=== PATIENT | male | born 1955 | race Caucasian/White ===

== ENCOUNTER → 2018-07-02 17:30 | Outpatient (CLI) | payer SELFPAY ==
--- NOTE | 2018-07-02 17:40 | CT_ITS ---
CT of the right heel Indication trauma TECHNIQUE: CT of the right heel was performed in the axial plane without contrast followed by sagittal and coronal reconstructions FINDINGS: There is an acute comminuted impacted fracture of the calcaneus with mild separation of fracture fragments. The subtalar joints are maintained. No other fractures are identified. CT/Extremity Lower without Contra IMPRESSION: Acute mildly impacted comminuted fracture of the calcaneus with separation of fracture fragments but preservation of subtalar joints Electronically Signed: Giuseppe Win MD at 18:04 EST , Service support ,
== END ==
PROVIDERS: Family Provider Internal Medicine; PCP Internal Medicine; Referring Provider Podiatrist Foot & Ankle Surgery; Visit Provider Podiatrist Foot & Ankle Surgery
DX: R60.0 Localized edema (principal)
CPT/HCPCS: 73700

== ENCOUNTER 2018-07-07 08:59 | Day surgery (SDC) | payer SELFPAY ==
[2018-07-07 09:27] VITALS: BP 164/98; PULSE 72; RESP 18; TEMP 36.6; O2SAT 98; BMI 25.5
[2018-07-07] MEDS: Cefazolin 2 GM in 0.9% Normal Saline 100 ML IV (12:35)
--- NOTE | 2018-07-07 13:00 | RAD_ITS ---
STUDY: Fluoroscopy- RIGHT CALCANEUS REASON FOR EXAM: Male, 62 years old. TECHNIQUE: Fluoroscopic intraoperative views view(s) of the calcaneus were obtained. Multiple views. COMPARISON: None. FINDINGS: Multiple fluoroscopic views are provided of the calcaneus during a fixation procedure for fracture.. Fluoroscopic time recorded as 457.9 seconds. RAD/Calcaneus min 2 Views IMPRESSION: Intraoperative fluoroscopic imaging open reduction internal fixation of the calcaneus. Electronically Signed: Velia Espino MD at 0:52 EST Tel , Service support ,
[2018-07-07 18:35] VITALS: BP 150/93; BP 164/98; PULSE 80; RESP 18; TEMP 36.9; O2SAT 94
--- NOTE | 2018-07-07 18:41 | PCM.DC.ORTHO ---
Discharge Activity: May Not Drive, May not drive while taking narcotic pain medications., May Not Shower, Use Walker, Use Crutches Weight Bearing Status: No weight bearing Keep extremity elevated above heart level: Operative Extremity Call your doctor if your incision/area has: Continuous Slow Oozing Call your doctor if you observe: Fever of 101 or Higher, Shortness of breath, Chest pain, Calf discomfort, Uncontrolled pain Cleanse incision/area with: Keep Dressing Clean & Dry Allergies/Adverse Reactions: Allergies No Known Allergies Allergy (Verified 07/06/18 10:09) Medications to take at [facility]charge [facility] [place] Blood Pressure 1 tab PO DAILY 07/06/18 Omeprazole [Prilosec] 20 mg PO PRN PRN 07/06/18 Doxycycline Hyclate 100 mg PO BID 14 Days #28 cap 07/07/18 Oxycodone [Oxyir] 5 mg PO Q6H PRN PRN 7 Days #30 tab 07/07/18 The following prescriptions were given: Oxycodone [Oxyir] 5 mg PO Q6H PRN PRN 7 Days #30 tab PRN Reason: Pain Doxycycline Hyclate 100 mg PO BID 14 Days #28 cap Primary Care Physician: Harmeet Mensah MD [Primary Care Provider] - Test Results: Test results from this visit will be discussed in further detail at your follow-up appointment, if applicable. Please Follow Up With: Tatiana Olmedo DPM - at previously scheduled post operative appointment Proposed Discharge Date: 07/07/18
[2018-07-07] MEDS: Ketorolac 30 MG/ML Syringe IV (18:45)
--- NOTE | 2018-07-07 18:45 | DCINST_ITS ---
Discharge Activity: May Not Drive, May not drive while taking narcotic pain medications., May Not Shower, Use Walker, Use Crutches Weight Bearing Status: No weight bearing Keep extremity elevated above heart level: Operative Extremity Call your doctor if your incision/area has: Continuous Slow Oozing Call your doctor if you observe: Fever of 101 or Higher, Shortness of breath, Chest pain, Calf discomfort, Uncontrolled pain Cleanse incision/area with: Keep Dressing Clean & Dry Allergies/Adverse Reactions: Allergies No Known Allergies Allergy (Verified 07/06/18 10:09) Medications to take at [facility]charge [facility] [place] Blood Pressure 1 tab PO DAILY 07/06/18 Omeprazole [Prilosec] 20 mg PO PRN PRN 07/06/18 Doxycycline Hyclate 100 mg PO BID 14 Days #28 cap 07/07/18 Oxycodone [Oxyir] 5 mg PO Q6H PRN PRN 7 Days #30 tab 07/07/18 The following prescriptions were given: Oxycodone [Oxyir] 5 mg PO Q6H PRN PRN 7 Days #30 tab PRN Reason: Pain Doxycycline Hyclate 100 mg PO BID 14 Days #28 cap Primary Care Physician: Harmeet Mensah MD [Primary Care Provider] - Test Results: Test results from this visit will be discussed in further detail at your follow- up appointment, if applicable. Please Follow Up With: Tatiana Olmedo DPM - at previously scheduled post operative appointment Proposed Discharge Date: 07/07/18
--- NOTE | 2018-07-07 18:47 | OP.PN_ITS ---
Immediate Post-Op Note Date of Procedure: 07/07/18 Primary Surgeon/Physician: Tatiana Olmedo DPM library media assistant: Nati Navas Pre-Operative Diagnosis: R calcaneal fracture Post-Operative Diagnosis: same Surgery/Procedure Performed:: Right ORIF calcaneal fracture Description of Surgical Findings:: see dictation Estimated Blood Loss: minimal Specimen's removed: none Type of Anesthesia:: General/Regional - Admit VTE Documentation VTE Present on Admission: No VTE Mechan Device Prophylaxis: SCD's, Knee High PEDRO PABLO Hose VTE Pharm Prophylaxis ordered?: Yes
--- NOTE | 2018-07-07 18:48 | RAD_ITS ---
STUDY: X-RAY - RIGHT CALCANEUS REASON FOR EXAM: Male, 62 years old. Open reduction internal fixation calcaneus fracture TECHNIQUE: 2 view(s) of the calcaneus were obtained. COMPARISON: None. FINDINGS: There are 3 long cortical screws and 2 shorter cortical screws transfixing a comminuted fracture of the calcaneus. RAD/Calcaneus min 2 Views IMPRESSION: Open reduction internal fixation of the calcaneus. Electronically Signed: Velia Espino MD at 0:58 EST Tel , Service support ,
[2018-07-07 18:51] VITALS: BP 155/99; BP 164/98; PULSE 85; RESP 16; O2SAT 93
[2018-07-07 19:04] VITALS: BP 150/99; BP 164/98; PULSE 80; RESP 16; TEMP 36.7; O2SAT 96
[2018-07-07 20:00] VITALS: BP 155/92; BP 164/98; PULSE 72; RESP 18; TEMP 36.9; O2SAT 100
--- NOTE | 2018-07-09 13:18 | PCM.OPRPT ---
Report of Operation Date of Procedure: 07/07/18 Pre-Operative Diagnosis: R calcaneal fracture, peroneal longus tendon tear Post-Operative Diagnosis: same Surgery/Procedure Performed:: Right ORIF calcaneal fracture, repair of the peroneal longus tendon Description of Surgical Findings:: see dictation miller head assistant wet process: Nati Navas Type of Anesthesia:: General/Regional Specimen's removed: none Drains: none Estimated Blood Loss (mL): minimal Description of Procedure: Indications: Pt is a 62 yo M who fell from a ladder placed on a round platform on 06/26/2018. He presented to his chiropractor who did foot films which revealed a calcaneal fracture and was referred to my office for evaluation. I saw him in my [id number]/2018 and again yesterday. He was sent for a CT scan, 07/02/2018 for surgical planning. Pt presents today for surgical intervention of his RT calcaneal fracture. All risks, complications, and alternatives were discussed with the patient, and the patient signed an informed consent. No guarantees were given. Procedure: On 07/07/2018, Jerrell Valadez was visually and verbally identified in the preoperative holding area. The consent form was again reviewed with the patient, as were all risks, complications, and alternatives and the patient wished to proceed with the proposed surgery. The right foot was marked as the correct operative extremity. The patient was brought to the operating room and placed on the operating room table. General anesthesia was performed and he was positioned in lateral decubitus position with all jose prominences well padded. A surgical time out was performed and all present were in agreement. a pneumatic thigh tourniquet was then placed. At this time the right lower extremity was prepped and draped in the usual sterile fashion. after exsanguination with an esmarch the tourniquet was inflated to 300 mmHg. At this time attention was directed to the right lateral foot. The lateral malleolus was identified. A #15 blade was then used to make a curvilinear incision extending from the lateral sinus tarsi to the base of the 4th metatarsal. The incision was bluntly carried deep through the subcutaneous tissues with careful attention paid to all bleeders, which were clamped and tied or bovied as necessary. All vital neurovascular structures were retracted. A vessel loupe was placed along a communicating branch of the sural nerve and retracted. The peroneal tendons were identified and inspected for tears, a small longitudinal tear was identified in the peroneal longus tendon distal to the lateral malleolus The EDB muscle was identified and resected distally with an L incision. The subtalar joint capsule was then incised. Numerous pieces of loose cartilage from the calcaneus were noted and removed. The subtalar joint was distracted with a lamina steam trap man for better visualiztion .A stab incision was made in the posterior body of the calcaneus with care taken to the avoid the peroneal tendons and sural nerve. A Steinmann pin was that placed from lateral to medial to aid in distraction of the calcaneus and offset the pull of the Achilles, and improve reduction. Fracture lines of the lateral wall were then identified and noted to extend medial across the calcaneus. Intra-articular fracture was noted. Fractures were debrided with a curette to remove hematoma. The lateral wall was fractured and comminuted with multiple pieces. A bruner elevator was used to free the lateral wall/fragments from the soft tissue. While using the Steinmann pin for plantar and posterior distraction, guidewires were placed into the exposed fracture fragments of the anterior calcaneus and lateral pieces to reduce the fracture. This allowed for the joystick technique of the fragments for reduction. Intraoperative fluoroscopy was utilized for placement of these guidewires and to gauge reduction. When satisfactory reduction of the fracture piece was noted the guidewires were advanced to the medial calcaneus/sustentaculum franco under intraoperative fluoroscopy. A cannulated drill was used under intraoperative fluoroscopic guidance. Two Marcus cannulated screws with washers were then placed over the guidewires. Good fixation was noted. A guidewire was then placed from the posterior plantar heel entering the calcaneus slightly lateral to the midline and was aimed towards the medial fragment/sustentaculum franco. This was done under intraoperative guideline to ensure proper position, length and reduction of fracture fragments. A second k wire was thrown for temporary fixation of fracture fragments from the plantar posterior calcaneus in a proximal dorsal direction along the midline. A partially threaded cannulated screw was then placed over the lateral to medial guide wire. Proper screw length and positioning was confirmed by intraoperative fluoroscopy to ensure that the screw reduced the fracture, the threads cross the fracture line and the tip did not enter any joint spaces. At this time I considered a lateral locking plate and evaluated several types vs screw fixation alone. I did not feel that the plates would capture the remaining fracture fragments adequately so I decided to continue with screw and washer fixation. A guidewire was then placed from the posterior calcaneus just distal to the insertion of the Achilles and advanced anteriorly and parallel to the weightbearing surface. The position and length was confirmed on intraoperative fluoroscopy. a fully threaded screw was placed from posterior to dorsal anterior with attention taken to not enter the joint. This allowed for reduction of the posterior fracture. The joint was continually evaluated by direct visualization and intra operative fluoroscopy. The fracture lines were reduced, the height of the calcaneus was re-established with the posterior facet intact, heel was in neutral position and the width was reduced. The most posterior superior fracture of the calcaneus was still displaced. A guidewire was the placed from superior to inferior, just lateral to the the Achilles tendon. A washer and fully threaded screw were then placed so that the screw would not be on the weightbearing surface of the heel. Reduction of the fracture line was noted. At this time the incision was flushed with copious amounts of normal sterile saline. The Subtalar joint was again inspected and appeared well aligned. The peroneal longus tendon was then debrided and using 2.0 vicryl repaired with simple interrupted sutures to tubularize it. Closure was initiated. with joint capsule, EDB reapproximation and deep sturctures done with 2.0 vicryl, subcutaneous tissue with 3.0 vicryl, and 3.0 prolene for skin, including the stab incisions. Betadine adaptic was applied to the surgical incisions along with dry, sterile dressings and a multilayer compressive dressing with a well padded posterior splint. Total tourniquet time for the case as 220 minutes, after 120 minutes the tourniquet was deflated and immediate capillary refill was noted to all digits, after at least a 30 minute interval the RLE was elevated and the tourniquet was reinflated to 300 mmHg. Upon final deflation immediate capillary refill was noted to all digits. Intra operative fluoroscopy was utilized throughout the case, > 1 hour, to aid in visualization and confirmation of fracture reduction and screw and plate fixations. Interpretation of the images was vital to my decision making process. The patient tolerated the procedure and anesthesia well. The patient was then transported to the postanesthesia care unit by a member of the anesthesia team and myself with all vital signs stable and neurovascular status of the RLE lower extremity equal to pre-operative levels. At the end of the case all sponge, needle and instrument counts were found to be correct. Physician elementary assistant principal was integral in all portions of this procedure. She assisted with positioning the patient, draping the extremity, holding retractors, closing the wound, and applying the dressing. This was all done under my direct supervision. The physician elementary assistant principal was essential for a successful, efficient surgery. Grafts/Implants Used: Marcus screws/washers - Complications none - Admit VTE Documentation VTE Present on Admission: No VTE Mechan Device Prophylaxis: SCD's, Knee High PEDRO PABLO Hose VTE Pharm Prophylaxis ordered?: Yes
--- OUTSIDE RECORDS SUMMARY | 2018-08-23 07:28 | XMS RPT_ITS ---
:1955 Author Organization [facility] Care Team Providers Name Role Phone OLDER, GILLIAN (ACCOUNTING PRACTICE MANAGER) Referring Unavailable OLDER, GILLIAN (ACCOUNTING PRACTICE MANAGER) Referring Unavailable OLDER, GILLIAN (ACCOUNTING PRACTICE MANAGER) Attending Unavailable OLDER, GILLIAN (ACCOUNTING PRACTICE MANAGER) Referring Unavailable NewbilZana lebron Admitting Unavailable NewZana galaviz Attending Unavailable Roger Everett W Primary Care Unavailable NewbillZana Admitting Unavailable NewbillZana Attending Unavailable Marguerite, Roger W Primary Care Unavailable Tatiana Olmedo Attending Unavailable Tatiana Olmedo Referring Unavailable Wild, Harmeet Primary Care Unavailable Tatiana Olmedo Attending Unavailable Srinivas Olmedoley Referring Unavailable Wild, Harmeet Primary Care Unavailable PROBLEMS PROBLEMS DATE TYPE CONDITION / CODE ATTENDING STATUS SOURCE 07/07/2018 Unknown G89.18 - Other acute Tatiana Olmedo Active [facility] / G89.18(ICD-10) Hospital Repository 05/28/2017 Active Essential (primary) NA Active [facility] / [facility] Main I10(ICD-10) [facility] Repository 07/03/2018 Active Encounter for other NA Active [facility] preprocedural [facility] Main examination / [facility] Z01.818(ICD-10) Repository PROCEDURES PROCEDURES No Procedure Records FoundRESULTS RESULTS OPERATIVE REPORT Observed: 07/09/2018 Status: F Source: [place] 5:20 PM [facility] REPOSITORY [facility] Medical Records Department [address] [place] [address] Operative Report 07/09/18 1318 MR#: [id number] Acct: [id number] Name: JERRELL MAYEN Rep #: [id number] : 1955 62 From: Tatiana Olmedo DPM PCP: Harmeet Wild MD Status: DEP [facility] [place] Location: [facility] Report of Operation Date of Procedure: 07/07/18 Pre-Operative Diagnosis: R calcaneal fracture, peroneal longus tendon tear Post-Operative Diagnosis: same Surgery/Procedure Performed:: Right ORIF calcaneal fracture, repair of the peroneal longus tendon Description of Surgical Findings:: see dictation pier master: Nati Navas Type of Anesthesia:: General/Regional Specimen's removed: none Drains: none Estimated Blood Loss (mL): minimal Description of Procedure: Indications: Pt is a 62 yo M who fell from a ladder placed on a round platform on 06/26/2018. He presented to his chiropractor who did foot films which revealed a calcaneal fracture and was referred to my office for evaluation. I saw him in my hakxno2007/01/2018 and again yesterday. He was sent for a CT scan, 07/02/2018 for surgical planning. Pt presents today for surgical intervention of his RT calcaneal fracture. All risks, complications, and alternatives were discussed with the patient, and the patient signed an informed consent. No guarantees were given. Procedure: On 07/07/2018, Jerrell Mayen was visually and verbally identified in the preoperative holding area. The consent form was again reviewed with the patient, as were all risks, complications, and alternatives and the patient wished to proceed with the proposed surgery. The right foot was marked as the correct operative extremity. The patient was brought to the operating room and placed on the operating room table. General anesthesia was performed and he was positioned in lateral decubitus position with all jose prominences well padded. A surgical time out was performed and all present were in agreement. a pneumatic thigh tourniquet was then placed. At this time the right lower extremity was prepped and draped in the usual sterile fashion. after exsanguination with an esmarch the tourniquet was inflated to 300 mmHg. At this time attention was directed to the right lateral foot. The lateral malleolus was identified. A #15 blade was then used to make a curvilinear incision extending from the lateral sinus tarsi to the base of the 4th metatarsal. The incision was bluntly carried deep through the subcutaneous tissues with careful attention paid to all bleeders, which were clamped and tied or bovied as necessary. All vital neurovascular structures were retracted. A vessel loupe was placed along a communicating branch of the sural nerve and retracted. The peroneal tendons were identified and inspected for tears, a small longitudinal tear was identified in the peroneal longus tendon distal to the lateral malleolus The EDB muscle was identified and resected distally with an L incision. The subtalar joint capsule was then incised. Numerous pieces of loose cartilage from the calcaneus were noted and removed. The subtalar joint was distracted with a lamina preliminary school psychologist for better visualiztion .A stab incision was made in the posterior body of the calcaneus with care taken to the avoid the peroneal tendons and sural nerve. A Steinmann pin was that placed from lateral to medial to aid in distraction of the calcaneus and offset the pull of the Achilles, and improve reduction. Fracture lines of the lateral wall were then identified and noted to extend medial across the calcaneus. Intra-articular fracture was noted. Fractures were debrided with a curette to remove hematoma. The lateral wall was fractured and comminuted with multiple pieces. A bruner elevator was used to free the lateral wall/fragments from the soft tissue. While using the Steinmann pin for plantar and posterior distraction, guidewires were placed into the exposed fracture fragments of the anterior calcaneus and lateral pieces to reduce the fracture. This allowed for the joystick technique of the fragments for reduction. Intraoperative fluoroscopy was utilized for placement of these guidewires and to gauge reduction. When satisfactory reduction of the fracture piece was noted the guidewires were advanced to the medial calcaneus/sustentaculum franco under intraoperative fluoroscopy. A cannulated drill was used under intraoperative fluoroscopic guidance. Two Fostoria cannulated screws with washers were then placed over the guidewires. Good fixation was noted. A guidewire was then placed from the posterior plantar heel entering the calcaneus slightly lateral to the midline and was aimed towards the medial fragment/sustentaculum franco. This was done under intraoperative guideline to ensure proper position, length and reduction of fracture fragments. A second k wire was thrown for temporary fixation of fracture fragments from the plantar posterior calcaneus in a proximal dorsal direction along the midline. A partially threaded cannulated screw was then placed over the lateral to medial guide wire. Proper screw length and positioning was confirmed by intraoperative fluoroscopy to ensure that the screw reduced the fracture, the threads cross the fracture line and the tip did not enter any joint spaces. At this time I considered a lateral locking plate and evaluated several types vs screw fixation alone. I did not feel that the plates would capture the remaining fracture fragments adequately so I decided to continue with screw and washer fixation. A guidewire was then placed from the posterior calcaneus just distal to the insertion of the Achilles and advanced anteriorly and parallel to the weightbearing surface. The position and length was confirmed on intraoperative fluoroscopy. a fully threaded screw was placed from posterior to dorsal anterior with attention taken to not enter the joint. This allowed for reduction of the posterior fracture. The joint was continually evaluated by direct visualization and intra operative fluoroscopy. The fracture lines were reduced, the height of the calcaneus was re-established with the posterior facet intact, heel was in neutral position and the width was reduced. The most posterior superior fracture of the calcaneus was still displaced. A guidewire was the placed from superior to inferior, just lateral to the the Achilles tendon. A washer and fully threaded screw were then placed so that the screw would not be on the weightbearing surface of the heel. Reduction of the fracture line was noted. At this time the incision was flushed with copious amounts of normal sterile saline. The Subtalar joint was again inspected and appeared well aligned. The peroneal longus tendon was then debrided and using 2.0 vicryl repaired with simple interrupted sutures to tubularize it. Closure was initiated. with joint capsule, EDB reapproximation and deep sturctures done with 2.0 vicryl, subcutaneous tissue with 3.0 vicryl, and 3.0 prolene for skin, including the stab incisions. Betadine adaptic was applied to the surgical incisions along with dry, sterile dressings and a multilayer compressive dressing with a well padded posterior splint. Total tourniquet time for the case as 220 minutes, after 120 minutes the tourniquet was deflated and immediate capillary refill was noted to all digits, after at least a 30 minute interval the RLE was elevated and the tourniquet was reinflated to 300 mmHg. Upon final deflation immediate capillary refill was noted to all digits. Intra operative fluoroscopy was utilized throughout the case, > 1 hour, to aid in visualization and confirmation of fracture reduction and screw and plate fixations. Interpretation of the images was vital to my decision making process. The patient tolerated the procedure and anesthesia well. The patient was then transported to the postanesthesia care unit by a member of the anesthesia team and myself with all vital signs stable and neurovascular status of the RLE lower extremity equal to pre-operative levels. At the end of the case all sponge, needle and instrument counts were found to be correct. Physician digital sales assistant was integral in all portions of this procedure. She assisted with positioning the patient, draping the extremity, holding retractors, closing the wound, and applying the dressing. This was all done under my direct supervision. The physician digital sales assistant was essential for a successful, efficient surgery. Grafts/Implants Used: Fostoria screws/washers - Complications none - Admit VTE Documentation VTE Present on Admission: No VTE Mechan Device Prophylaxis: SCD's, Knee High PEDRO PABLO Hose VTE Pharm Prophylaxis ordered?: Yes 07/09/18 1720 <Electronically signed by Tatiana Olmedo DPM> Date Tatiana Olmedo DPM CC: SAMUEL Olmedo; Harmeet Wild MD Signed DISCHARGE INSTRUCTION Observed: 07/07/2018 Status: F Source: [place] 6:45 PM [facility] REPOSITORY [facility] Medical Records Department [address] [place] [id number] Instructions for Home/Discharge Instructions 07/07/18 1841 MR#: [id number] Acct: [id number] Name: JERRELL MAYEN Rep #: [id number] : 1955 62 From: Tatiana Olmedo DPM PCP: Harmeet Wild MD Status: [facility] Discharge Activity: May Not Drive, May not drive while taking narcotic pain medications., May Not Shower, Use Walker, Use Crutches Weight Bearing Status: No weight bearing Keep extremity elevated above heart level: Operative Extremity Call your doctor if your incision/area has: Continuous Slow Oozing Call your doctor if you observe: Fever of 101 or Higher, Shortness of breath, Chest pain, Calf discomfort, Uncontrolled pain Cleanse incision/area with: Keep Dressing Clean AND Dry Allergies/Adverse Reactions: Allergies No Known Allergies Allergy (Verified 07/06/18 10:09) Medications to take at Discharge [facility] [place] Blood Pressure 1 tab PO DAILY 07/06/18 Omeprazole [Prilosec] 20 mg PO PRN PRN 07/06/18 Doxycycline Hyclate 100 mg PO BID 14 Days #28 cap 07/07/18 Oxycodone [Oxyir] 5 mg PO Q6H PRN PRN 7 Days #30 tab 07/07/18 The following prescriptions were given: Oxycodone [Oxyir] 5 mg PO Q6H PRN PRN 7 Days #30 tab PRN Reason: Pain Doxycycline Hyclate 100 mg PO BID 14 Days #28 cap Primary Care Physician: Harmeet Wild MD [Primary Care Provider] - Test Results: Test results from this visit will be discussed in further detail at your follow-up appointment, if applicable. Please Follow Up With: Tatiana Olmedo DPM - at previously scheduled post operative appointment Proposed Discharge Date: 07/07/18 07/07/18 1845 <Electronically signed by Tatiana Olmedo DPM> Date Tatiana Olmedo DPM CC: Harmeet Wild MD CALCANEUS MIN 2 VIEWS Observed: 07/07/2018 Status: F Source: [place] 6:40 PM [facility] REPOSITORY [facility] Imaging Services [address] [place] [address] Calcaneus min 2 Views MR#: [id number] Acct: [id number] Name: JERRELL MAYEN Rep #: [id number] : 1955 M 62 From: Velia Espino MD PCP: Harmeet Wild MD Status: [facility] Study: Calcaneus min 2 Views Date of Exam: 07/07/18 Exam# [id number] Ordering Dr: Tatiana Olmedo DPM STUDY: X-RAY - RIGHT CALCANEUS REASON FOR EXAM: Male, 62 years old. Open reduction internal fixation calcaneus fracture TECHNIQUE: 2 view(s) of the calcaneus were obtained. COMPARISON: None. FINDINGS: There are 3 long cortical screws and 2 shorter cortical screws transfixing a comminuted fracture of the calcaneus. RAD/Calcaneus min 2 Views IMPRESSION: Open reduction internal fixation of the calcaneus. Electronically Signed: Velia Espino MD at 0:58 EST Tel , Service support , CC: SAMUEL Olmedo; Harmeet Wild MD Jogger Operator: Signed CALCANEUS MIN 2 VIEWS Observed: 07/07/2018 Status: F Source: [place] 12:09 AM [facility] REPOSITORY [facility] Imaging Services [address] [place] [address] Calcaneus min 2 Views MR#: [id number] Acct: [id number] Name: JERRELL MAYEN Rep #: [id number] : 1955 M 62 From: Velia Espino MD PCP: Harmeet Wild MD Status: [facility] Study: Calcaneus min 2 Views Date of Exam: 07/07/18 Exam# [id number] Ordering Dr: Tatiana Olmedo DPM STUDY: Fluoroscopy- RIGHT CALCANEUS REASON FOR EXAM: Male, 62 years old. TECHNIQUE: Fluoroscopic intraoperative views view(s) of the calcaneus were obtained. Multiple views. COMPARISON: None. FINDINGS: Multiple fluoroscopic views are provided of the calcaneus during a fixation procedure for fracture.. Fluoroscopic time recorded as 457.9 seconds. RAD/Calcaneus min 2 Views IMPRESSION: Intraoperative fluoroscopic imaging open reduction internal fixation of the calcaneus. Electronically Signed: Velia Espino MD at 0:52 EST Tel , Service support , CC: SAMUEL Olmedo; Harmeet Wild MD Jogger Operator: Signed BASIC METABOLIC PANL Collected: 07/03/2018 Status: F Source: [place] 4:[address] [facility] REPOSITORY TYPE CODE TESTS RESULT OUT OF REFERENCE UNITS RANGE LAB GLU 74-99 mg/dL High Glucose 100 Result Comment: The [place] Diabetes Association (ADA) provides guidance for cutoff values for fasting glucose and random glucose. The ADA defines fasting as no caloric intake for at least 8 hours. Fas ting plasma glucose results between 100 to 125 mg/dL indicate increased risk for diabetes (prediabetes). Fasting plasma glucose results greater than or equal to 126 mg/dL meet the criteria for diagnosis of diabetes. In the absence of unequivocal hyperglycemia, results should be confirmed by repeat testing. In a patient with classic symptoms of hyperglycemia or hyperglycemic crisis, random plasma glucose results greater than or equal to 200 mg/dL meet the criteria for diagnosis of diabetes. Reference: Standards of Medical Care in Diabetes 2016, [place] Diabetes Association. Diabetes Care. 2016.39(Suppl 1). LAB BUN 9-24 mg/dL BUN 15 LAB CRET 0.73-1.22 mg/dL Creatinine 1.00 LAB NA 136-144 mmol/L Sodium 140 LAB K 3.7-5.1 mmol/L Potassium 4.3 LAB CL 97-105 mmol/L Chloride 103 LAB CO2 22-30 mmol/L CO2 26 LAB AGAP 9-18 mmol/L Anion Gap 11 LAB CA 8.5-10.2 mg/dL Calcium, Total 9.6 LAB GFRAA eGFR- Amer. >60 LAB GFRNAA . eGFR-All Other Races >60 Result Comment: eGFR (Estimated GFR) Units of measure: mL/min/1.73 meters squared eGFR is derived from the reexpressed MDRD Study equation using the following parameters: serum creatinine, age, gender and race. The creatinine assay has been calibrated to be traceable to IDMS. An eGFR <60 mL/min/1.73m2 for >3 months is consistent with chronic kidney disease. Refer to KDOQI guidelines for clinical interpretation. In patients with unstable renal function, e.g. those with acute kidney injury, the eGFR may not accurately reflect actual GFR. Performed By: #### BMP, CBCDIF #### [facility] [address] [place], [place] [address] CBC AND DIFFERENTIAL Collected: 07/03/2018 Status: F Source: [place] 4:[address] [facility] REPOSITORY TYPE CODE TESTS RESULT OUT OF REFERENCE UNITS RANGE LAB WBC 3.70-11.00 k/uL WBC 6.08 LAB RBC 4.20-6.00 m/uL RBC 4.27 LAB HGB 13.0-17.0 g/dL Hemoglobin 13.8 LAB HCT 39.0-51.0 % Hematocrit 41.4 LAB MCV 80.0-100.0 fL MCV 97.0 LAB MCH 26.0-34.0 pG MCH 32.3 LAB MCHC 30.5-36.0 g/dL MCHC 33.3 LAB RDWCV 11.5-15.0 % RDW-CV 12.2 LAB PLTCT 150-400 k/uL Platelet Count 246 LAB MPV 9.0-12.7 fL MPV 11.9 LAB ANEUT % Neut% 66.1 LAB AANEUT 1.45-7.50 k/uL Abs Neut 4.00 LAB ALYMP % Lymph% 20.2 LAB AALYMP 1.00-4.00 k/uL Abs Lymph 1.23 LAB AMONO % Lassen% 10.9 LAB AAMONO <0.87 k/uL Abs Lassen 0.66 LAB AEOS % Eosin% 1.8 LAB AAEOS <0.46 k/uL Abs Eosin 0.11 LAB ABASO % Baso% 1.0 LAB AABASO <0.11 k/uL Abs Baso 0.06 LAB AUNRBC 0 /100 WBC NRBCs 0.0 LAB ABNRBC <0.01 k/uL Absolute nRBC <0.01 LAB DTYP DTYPE Auto Diff Performed By: #### BMP, CBCDIF #### [facility] [address] [place], [place] [address] XR CHEST 2V FRONTAL/LAT Observed: 07/03/2018 Status: F Source: [place] 4:23 PM [facility] REPOSITORY * * *Final Report* * * DATE OF EXAM: Jul 03 2018 4:23PM WOX [id number] - XR CHEST 2V FRONTAL/LAT / PROCEDURE REASON: Preop exam for internal medicine * * * * Physician Interpretation * * * * EXAMINATION: CHEST RADIOGRAPH (2 VIEW FRONTAL and LATERAL) CLINICAL HISTORY: Preop exam for internal medicine MQ: XC2_5 Comparison: None RESULT: Lines, tubes, and devices: None. Lungs and pleura: No consolidation. No lung mass. No pleural effusion. Cardiomediastinal silhouette: Normal cardiomediastinal silhouette. Other: . IMPRESSION: No acute radiographic abnormality. Jogger Operator: PSCClarence Transcribe Date/Time: Jul 03 2018 4:27P Dictated by : BRIANA GAYTAN MD This examination was interpreted and the report reviewed and electronically signed by: BRIANA GAYTAN MD on Jul 03 2018 4:28PM EST [id number] Observed: 07/03/2018 Status: COMPLETED Source: [place] 4:16 PM [facility] REPOSITORY HNO ID: [id number] Author: Monika Zapata Service: (none) Author Type: (none) Type: Progress Notes Filed: 07/03/2018 4:23 PM Note Text: Radiology Service Progress Note PATIENT NAME: Edmar Mayen DATE OF SERVICE: July 03, 2018 TIME: 4:16 PM PATIENT IDENTITY VERIFICATION COMPLETED USING TWO (2) METHODS: Patient confirmed name verbally and Date of . PATIENT GENDER DATA: Male PATIENT RELEVANT IMPLANT DATA REVIEWED: Not Applicable RADIOLOGY DEPARTMENT: General X-ray: Exam(s) Completed: Chest X-Ray PERIPHERAL IV DATA: Not applicable SIGNED BY: Monika Zapata July 03, 2018 4:16 PM ECG COMPLETE W Observed: 07/03/2018 Status: F Source: [place] INTERPRETATION 4:03 PM [facility] REPOSITORY NAME : EDMAR MAYEN PID : [id number] : 1955 Gender : Male Race : ORD : [id number] Procedure Date : Jul 03 2018 16:03:11 Edit Date : Jul 27 2018 09:16:48 Diagnosis:NORMAL SINUS RHYTHM NORMAL ECG Confirmed by SHARA WHALEY D.O. ([id number]) on 07/27/2018 9:16:43 AM Ventricular Rate : 70 BPM Atrial Rate : 70 BPM P-R Interval : 142 ms QRS Duration : 106 ms Q-T Interval : 406 ms QTC Calculation(Bezet) : 438 ms P [place] : 58 degrees R [place] : -11 degrees T [place] : 2 degrees Test Reason : Location : 185 : WO Overread By : SHARA WHALEY D.O. Edited By : SHARA WHALEY D.O. Referred By : GILLIAN QUISPE Acquired by : RONNI TORRES CMA, EKG1 Observed: 07/03/2018 Status: F Source: [place] 4:02 PM [facility] REPOSITORY NAME : EDMAR MAYEN PID : [id number] : 1955 Gender : Male Race : ORD : Procedure Date : Jul 03 2018 16:02:46 Edit Date : Jul 26 2018 09:00:24 Diagnosis:SINUS RHYTHM WITH OCCASIONAL PREMATURE VENTRICULAR COMPLEXES OTHERWISE NORMAL ECG Confirmed by SHARA WHALEY D.O. ([id number]) on 07/26/2018 9:00:19 AM Ventricular Rate : 72 BPM Atrial Rate : 72 BPM P-R Interval : 148 ms QRS Duration : 108 ms Q-T Interval : 396 ms QTC Calculation(Bezet) : 433 ms P [place] : 60 degrees R [place] : -10 degrees T [place] : 3 degrees Test Reason : Location : 185 : WO Overread By : SHARA WHALEY D.O. Edited By : SHARA WHALEY D.O. Referred By : GILLIAN QUISPE ACCOUNTING PRACTICE MANAGER, Acquired by : RONNI TORRES CMA, CNOV Observed: 07/03/2018 Status: COMPLETED Source: [place] 3:40 PM [facility] REPOSITORY Office Visit (INTMWS) EDMAR MAYEN ([id number]) 1955 M Date Time Provider Department 07/03/18 3:40 PM GILLIAN QUISPE (REYNALDO) INTMWS During your visit today, we recorded the following information about you: Temperature Pulse Respiration Blood pressure 99.1 degrees 74/minute 16/minute 138/90 Gillian KRISTINE Quispe 07/03/2018 4:19 PM Signed CC: Patient presents with: Pre-Op Exam HPI Edmar Mayen is a 62 year old male who presents today for pre-op evaluation. Surgical Procedure: right calcaneus ORIF and/or subtalar fusion Date of Procedure: 07/07/18 Surgeon: Dr. Tatiana Olmedo DPM PAT date: NA 1. Diabetes:No 2. Hypertension requiring medication: Yes 3. Congestive Heart Failure: History of hypertension. Patient was being treated with Norvasc but discontinued on his own. Checks BP at drug store, usually in the 120's over 70's. Denies chest pain, shortness of breath, heart palpitations, edema, fatigue 4. Current Smoker within 1 Year: Smokes occasionally 5. History of COPD: No 6. History of SHIVAM: No 7. Dialysis: No REVIEW OF SYSTEMS General: no fevers, no chills, no night sweats, no recurrent infections, no change in appetite, no change in energy and no significant changes in weight HEENT: no frequent or significant headaches, no changes in hearing, no visual changes Neck: no lumps, no pain and no swelling Respiratory: no cough, no wheezing Cardiovascular: see HPI GI: Negative for abdominal discomfort, blood in stools or black stools, change in bowel habit, heart burn, nausea, vomiting : No difficulty urinating, nocturia > 1 time per night or hematuria Neurologic: No headache, weakness, numbness, tingling, neck stiffness, tremor, vertigo, dizziness, memory loss, syncope. PAST MEDICAL HISTORY Diagnosis Date - Elevated PSA 04/07/2017 - Gastroesophageal reflux disease without esophagitis 12/12/2016 - Hypercholesterolemia 04/07/2017 PAST SURGICAL HISTORY Procedure Laterality Date - APPENDECTOMY HX 1974 - CORRECT BUNION,PEARL/RASHID/URIARTE Left 1979 ALLERGIES Patient has no known allergies. MEDICATIONS omeprazole (PRILOSEC) 20 mg capsule Take 1 capsule by mouth daily before breakfast. 1/2 hour before meal. amLODIPine (NORVASC) 10 mg tablet Take 1 tablet by mouth once daily. FAMILY HISTORY Problem Relation Age of Onset - Hypertension Mother - Arthritis Mother - Arthritis Father - Coronary Artery Disease Maternal Grandfather - Stroke Paternal Grandmother Social History Substance Use Topics - Smoking status: Current Some Day Smoker Types: Cigarettes Start date: 11/26/2015 - Smokeless tobacco: Never Used Comment: 2 per day - Alcohol use 7.5 oz/week 5 Mixed Drinks per week PHYSICAL EXAM BP 142/86 (BP Site: Left Arm, BP Position: Sitting, BP Cuff Size: Regular Adult) Pulse 74 Temp 37.3 ?C (99.1 ?F) (Temporal Artery) Resp 16 SpO2 96% General Appearance: well appearing, in no acute distress, alert Neck: Thyroid normal size and symmetric without palpable nodules, Neck supple, No adenopathy Oropharynx: lips normal without lesions, tongue midline and normal, soft palate, uvula, and tonsils normal Lungs: lungs clear to auscultation. No wheezing, rhonchi, rales Heart: RRR without murmur, gallop, or rubs. No ectopy Abdomen: soft, nondistended, nontender, no hepatosplenomegaly or masses Extremities: No deformities, edema, skin discoloration, clubbing or cyanosis. Good capillary refill. , Pulses: 2+ Diagnoses/Plan 1. Pre-operative evaluation DOBBS risk: Patient is scheduled for a intermediate-risk procedure. - Check Basic Metabolic Panel, Complete Blood Count, chest x-ray and EKG per surgeon request - EKG today showing NSR There is no known pertinent medical condition which may affect svetlana-operative course Risk of 0.0% calculated using the NSQIP surgical risk calculator The patient is optimized for surgery Gillian Quispe APRN.ACCOUNTING PRACTICE MANAGER Referring Provider: SELF [200] Allergies As of Date: 07/03/2018 (No Known Allergies) Date Reviewed: 07/03/2018 Reviewed by: Carmen Torres Cma - Fully Assessed Reason for Visit: Pre-Op Exam [87] Primary Visit Diagnosis:Preop exam for internal medicine [Z01.818] Other Visit Diagnosis:Essential hypertension [I10] Order(s):ECG COMPLETE W INTERPRETATION [ECG01] Order #: [id number] FUTURE BASIC METABOLIC PNL [SQBMP] Order #: [id number] FUTURE CBC + DIFF [SQCBCDIF] Order #: [id number] FUTURE XR CHEST 2V FRONTAL/LAT [3686977] Order #: [id number] FUTURE Prescriptions as of 07/03/2018 Sig: OMEPRAZOLE 20 MG CAPSULE,MAE* Take 1 capsule by mouth daily* AMLODIPINE 10 MG TABLET Take 1 tablet by mouth once d* Patient not taking: Reported on 07/03/2018 Problem List As Of Date 07/03/2018 Noted Resolved Gastroesophageal reflux disease without esophag*INVALID FOR* Hypercholesterolemia [E78.00] INVALID FOR* Elevated PSA [R97.20] INVALID FOR* Essential hypertension [I10] INVALID FOR* Encounter Status:Closed by GILLIAN QUISPE CNP on 07/03/18 PROGRESS Observed: 07/03/2018 Status: COMPLETED Source: [place] 3:33 PM [facility] REPOSITORY HNO ID: [id number] Author: Gillian Rahman) Abhijit Service: (none) Author Type: Nurse Practitioner Type: Progress Notes Filed: 07/03/2018 4:19 PM Note Text: CC: Patient presents with: Pre-Op Exam HPI Edmar Mayen is a 62 year old male who presents today for pre-op evaluation. Surgical Procedure: right calcaneus ORIF and/or subtalar fusion Date of Procedure: 07/07/18 Surgeon: Dr. Tatiana Olmedo DPM PAT date: NA 1. Diabetes:No 2. Hypertension requiring medication: Yes 3. Congestive Heart Failure: History of hypertension. Patient was being treated with Norvasc but discontinued on his own. Checks BP at drug store, usually in the 120's over 70's. Denies chest pain, shortness of breath, heart palpitations, edema, fatigue 4. Current Smoker within 1 Year: Smokes occasionally 5. History of COPD: No 6. History of SHIVAM: No 7. Dialysis: No REVIEW OF SYSTEMS General: no fevers, no chills, no night sweats, no recurrent infections, no change in appetite, no change in energy and no significant changes in weight HEENT: no frequent or significant headaches, no changes in hearing, no visual changes Neck: no lumps, no pain and no swelling Respiratory: no cough, no wheezing Cardiovascular: see HPI GI: Negative for abdominal discomfort, blood in stools or black stools, change in bowel habit, heart burn, nausea, vomiting : No difficulty urinating, nocturia > 1 time per night or hematuria Neurologic: No headache, weakness, numbness, tingling, neck stiffness, tremor, vertigo, dizziness, memory loss, syncope. PAST MEDICAL HISTORY Diagnosis Date - Elevated PSA 04/07/2017 - Gastroesophageal reflux disease without esophagitis 12/12/2016 - Hypercholesterolemia 04/07/2017 PAST SURGICAL HISTORY Procedure Laterality Date - APPENDECTOMY HX 1974 - CORRECT BUNION,PEARL/RASHID/URIARTE Left 1979 ALLERGIES Patient has no known allergies. MEDICATIONS omeprazole (PRILOSEC) 20 mg capsule Take 1 capsule by mouth daily before breakfast. 1/2 hour before meal. amLODIPine (NORVASC) 10 mg tablet Take 1 tablet by mouth once daily. FAMILY HISTORY Problem Relation Age of Onset - Hypertension Mother - Arthritis Mother - Arthritis Father - Coronary Artery Disease Maternal Grandfather - Stroke Paternal Grandmother Social History Substance Use Topics - Smoking status: Current Some Day Smoker Types: Cigarettes Start date: 11/26/2015 - Smokeless tobacco: Never Used Comment: 2 per day - Alcohol use 7.5 oz/week 5 Mixed Drinks per week PHYSICAL EXAM BP 142/86 (BP Site: Left Arm, BP Position: Sitting, BP Cuff Size: Regular Adult) Pulse 74 Temp 37.3 ?C (99.1 ?F) (Temporal Artery) Resp 16 SpO2 96% General Appearance: well appearing, in no acute distress, alert Neck: Thyroid normal size and symmetric without palpable nodules, Neck supple, No adenopathy Oropharynx: lips normal without lesions, tongue midline and normal, soft palate, uvula, and tonsils normal Lungs: lungs clear to auscultation. No wheezing, rhonchi, rales Heart: RRR without murmur, gallop, or rubs. No ectopy Abdomen: soft, nondistended, nontender, no hepatosplenomegaly or masses Extremities: No deformities, edema, skin discoloration, clubbing or cyanosis. Good capillary refill. , Pulses: 2+ Diagnoses/Plan 1. Pre-operative evaluation DOBBS risk: Patient is scheduled for a intermediate-risk procedure. - Check Basic Metabolic Panel, Complete Blood Count, chest x-ray and EKG per surgeon request - EKG today showing NSR There is no known pertinent medical condition which may affect svetlana-operative course Risk of 0.0% calculated using the NSQIP surgical risk calculator The patient is optimized for surgery Gillian Quispe APRN.ACCOUNTING PRACTICE MANAGER EXTREMITY LOWER Observed: 07/02/2018 Status: F Source: [place] WITHOUT CONTRA 5:40 PM [facility] REPOSITORY [facility] Imaging Services [address] [place] [address] Extremity Lower without Contra MR#: [id number] Acct: [id number] Name: JERRELL MAYEN Rep #: [id number] : 1955 M 62 From: Giuseppe Win MD PCP: Harmeet Wild MD Status: REG CLI Study: Extremity Lower without Contra Date of Exam: 07/02/18 Exam# [id number] Ordering Dr: Tatiana Olmedo DPM CT of the right heel Indication trauma TECHNIQUE: CT of the right heel was performed in the axial plane without contrast followed by sagittal and coronal reconstructions FINDINGS: There is an acute comminuted impacted fracture of the calcaneus with mild separation of fracture fragments. The subtalar joints are maintained. No other fractures are identified. CT/Extremity Lower without Contra IMPRESSION: Acute mildly impacted comminuted fracture of the calcaneus with separation of fracture fragments but preservation of subtalar joints Electronically Signed: Giuseppe Win MD at 18:04 EST , Service support , CC: SAMUEL Olmedo; Harmeet Wild MD Jogger Operator: Signed CNPTOUTREACH Observed: 11/25/2017 Status: COMPLETED Source: [place] 12:00 AM [facility] REPOSITORY Patient Outreach (FAMPST) EDMAR MAYEN ([id number]) 1955 Date Time Provider Department 11/25/17 HARMEET WILD During your visit today, we recorded the following information about you: Allergies As of Date: 11/25/2017 (No Known Allergies) Date Reviewed: 07/23/2017 Reviewed by: Bhumi Tellez LPN - Fully Assessed Visit Diagnosis:Medication management [Z79.899] Order(s):LIPID PANEL BASIC [SQLIPB] Order #: [id number] FUTURE Prescriptions as of 11/25/2017 Sig: OMEPRAZOLE 20 MG CAPSULE,MAE* Take 1 capsule by mouth daily* AMLODIPINE 10 MG TABLET Take 1 tablet by mouth once d* Problem List As Of Date 11/25/2017 Noted Resolved Gastroesophageal reflux disease without esophag*INVALID FOR* Hypercholesterolemia [E78.00] INVALID FOR* Elevated PSA [R97.20] INVALID FOR* Essential hypertension [I10] INVALID FOR* Encounter Status:Closed by [employer], mEgoUSER on 05/08/18 GI PANEL Collected: 11/12/2017 Status: F Source: [facility] 12:55 PM [facility] REPOSITORY Order Comment: A negative FilmArray GI Panel result does not exclude the possibility of gastrointestinal infection. TYPE CODE TESTS RESULT OUT OF RANGE REFERENCE UNITS LAB 932278001 (LOINC) Campylobacter Normal Not Detected LAB 947997091 (LOINC) Clostridium difficile Normal toxin A/B Not Detected LAB 206601196 (LOINC) Plesiomonas Normal shigelloides Not Detected LAB 381995514 (LOINC) Salmonella Abnormal Detected LAB 631453805 (LOINC) Vibrio Normal Not Detected LAB 002620159 (LOINC) Vibrio cholerae Normal Not Detected LAB 155781096 (LOINC) Yersinia Normal enterocolitica Not Detected LAB 933476299 (LOINC) Enteroaggregatvie E Normal coli (EAEC) Not Detected LAB 977301277 (LOINC) Enteropathogenic E Normal Coli (EPEC) Not Detected LAB 981028456 (LOINC) Enterotoxigenci E Normal coli (ETEC)lt/st Not Detected LAB 658041879 (LOINC) Shiga-like Normal toxin-producing E Not coli (STEC) Detected LAB 014212115 (LOINC) Shigella/Enteroinvasi Normal ve E coli (EIEC) Not Detected LAB 614173220 (LOINC) Cryptosporidium Normal Not Detected LAB 185207596 (LOINC) Cyclospora Normal cayetanensis Not Detected LAB 812809922 (LOINC) Entamoeba histolytica Normal Not Detected LAB 819738936 (LOINC) Giardia lamblia Normal Not Detected LAB 037268995 (LOINC) Adenovirus F40/41 Normal Not Detected LAB 778256867 (LOINC) Astrovirus Normal Not Detected LAB 738927594 (LOINC) Norovirus GI/GII Normal Not Detected LAB 258153599 (LOINC) Rotavirus A Normal Not Detected Result Comment: The performance of the FilmArray GI Panel has not been established in individuals who received Rotavirus A vaccine. Recent oral administration of a Rotavirus A vaccine may cause positiv e results for Rotavirus A if the virus is passed in the stool. Note: A negative FilmArray GI Panel does not exclude the possibility of gastrointestinal infection. LAB 997957530(LOINC) Normal Sapovirus Not Detected LAB 379191374(LOINC) E Normal coli 0157 Not Detected Performed By: #### [id number] #### [facility] Micro SubSection , ALLERGIES ALLERGIES DATE TYPE / CODE NAME / CODE REACTION SEVERITY SOURCE 07/06/2018 Drug No Known Unknown [place] Allergy/416 Allergies/O962746 [facility] 594005(SNOM 388(RXNORM) [facility] ED CT) Repository Drug NO KNOWN [facility] Class/90839 ALLERGIES [address] [place] 1003(SNOMED Repository CT) Drug/240795 No Known [employer] 003(SNOMED [facility] CT) Allergies System Repository ENCOUNTERS ENCOUNTERS ADMIT/DISCHARGE ACCOUNT NUMBER ADMITTING ENCOUNTER LOCATION SOURCE CLASS 07/07/2018/07/07/20 [id number] Ambulatory Wael Olancha [address] [place] [address] ding:SDCRoom Repository : AC20 07/03/2018/07/03/20 [id number] Ambulatory [address] Repository 07/03/2018/07/03/20 [id number] Ambulatory [address] Repository 07/03/2018/07/03/20 [id number] Ambulatory [address] Repository 07/03/2018/07/06/20 [id number] Ambulatory [address] Repository 07/02/2018 [id number] Ambulatory [place] [facility] ding:CT Repository 11/12/2017/11/13/[id number] [facility] [address] ding:SH.[facility] Repository 11/12/2017/11/13/19 [id number] [facility] g:QCareRoom: Regional Room 1 Health System Repository PAYERS PAYERS ENCOUNTER GUARANTOR PAYER SUBSCRIBER SOURCE 07/07/2018 JERRELL Hernandez Primary NOT GIVENUNK [place] [id number] SR Insurance:SELF PAY [address], [facility] [address]Ena: (636) Number: Effective Repository [phone] (HP) Date:2018-07-02 07/02/2018 JERRELL Hernandez Primary Insurance:[facility] JERRELL Hernandez Olancha [id number] SR PACKAGE PLANPoly ELSONDOB: [address] Number: [id number] [address]Xxo: [phone] [id number] Repository [phone] (HP) Date:2018-07-02 07/02/2018 Secondary NOT GIVENUNK [place] Insurance:SELF PAY [facility] Number: Effective Repository Date:2018-07-02 11/12/2017 JERRELL Hernandez Primary Insurance:3RD JERRELL David [employer] ELSONDOB: [employer] ELSONDOB: [facility] Number: Effective [id number] System [address] Date:2017-12-25 - STATE ROUTE Repository [address] [id number] [address] [address]Vgv: Name:CD:[id number] [id number]: [place], [place] [address]YL: [phone] (HP) (HP) () 11/12/2017 JERRELL G Primary PRINCESS [place] [employer] ELSONDOB: Insurance:1500 Self ELSONDOB: [facility] Number: [id number] System [address] Effective [address] Repository [address] Date:2017-11-12 [place] [address]Wvu: [id number] [id number]: Name:CD:[id number] () () (WP)
== END 2018-07-07 20:20 | disposition home or self-care (01) ==
LOC: SDC 08:59 → AC 09:01
PROVIDERS: Family Provider Internal Medicine; PCP Internal Medicine; Referring Provider Podiatrist Foot & Ankle Surgery; Visit Provider Podiatrist Foot & Ankle Surgery
PROC: (CPT 28415; principal; 2018-07-07 10:25)
DX: S92.064A Nondisplaced intraarticular fracture of right calcaneus, initial encounter for closed fracture (principal); I11.0 Hypertensive heart disease with heart failure; I50.9 Heart failure, unspecified; G47.33 Obstructive sleep apnea (adult) (pediatric); E78.00 Pure hypercholesterolemia, unspecified; K21.9 Gastro-esophageal reflux disease without esophagitis; F17.210 Nicotine dependence, cigarettes, uncomplicated; Z79.899 Other long term (current) drug therapy; W11.XXXA Fall on and from ladder, initial encounter; Y93.89 Activity, other specified; Y92.89 Other specified places as the place of occurrence of the external cause; Y99.8 Other external cause status
CPT/HCPCS: 01480; 28415; 73650; 76000; C1713; J7120; J2405